=== PATIENT | female | born 1965 | race Caucasian/White ===

== ENCOUNTER 2019-02-09 17:18 | Emergency (ER) | payer OTHER ==
[~2019-02-09] VITALS: Ht 152.4 cm; Wt 63.0 kg
[2019-02-09] MEDS ORDERED: NOVOLOG MI100 UNIT/2 (17:50)
== END 2019-02-10 | disposition home or self-care (01) ==
LOC: ER 17:18
DX: D25.9 Leiomyoma of uterus, unspecified (principal); N83.292 Other ovarian cyst, left side; R10.2 Pelvic and perineal pain

== ENCOUNTER 2019-02-10 05:16 | Inpatient (IN) | payer OTHER ==
[~2019-02-10] VITALS: Ht 154.9 cm; Wt 63.0 kg
[~2019-02-10 05:16] MED LIST: NOVOLOG MI100 UNIT/2
== END 2019-02-15 16:26 | disposition home or self-care (01) | DRG 638 ==
LOC: ER 05:16 → ICU-2 15:59 → SEC-K 02-11 15:33 → MEDI 02-11 15:41
PROVIDERS: ADMIT Specialist
PROC: BW4GZZZ Ultrasonography of Pelvic Region (ICD-10-PCS; principal; 2019-02-13)
DX: E10.10 Type 1 diabetes mellitus with ketoacidosis without coma (principal); N39.0 Urinary tract infection, site not specified; K59.01 Slow transit constipation; D25.1 Intramural leiomyoma of uterus; D64.89 Other specified anemias; E03.8 Other specified hypothyroidism; E86.0 Dehydration; F32.89 Other specified depressive episodes; F41.8 Other specified anxiety disorders; Z91.14 Patient's other noncompliance with medication regimen; Z79.4 Long term (current) use of insulin

== ENCOUNTER 2019-02-16 12:43 | Inpatient (IN) | payer OTHER ==
[~2019-02-16] VITALS: Ht 154.9 cm; Wt 63.0 kg
== END 2019-02-26 10:43 | DRG 742 ==
LOC: ER 12:43 → SEC-K 02-17 17:15 → MEDI 02-17 17:15 → OB/GYN 02-23 15:12
PROVIDERS: Obstetrics & Gynecology; ADMIT Internal Medicine
PROC: BR29ZZZ Computerized Tomography (CT Scan) of Lumbar Spine (ICD-10-PCS; 2019-02-18)
PROC: 0UT20ZZ Resection of Bilateral Ovaries, Open Approach (ICD-10-PCS; 2019-02-23)
PROC: 0UT70ZZ Resection of Bilateral Fallopian Tubes, Open Approach (ICD-10-PCS; 2019-02-23)
PROC: 0UT90ZZ Resection of Uterus, Open Approach (ICD-10-PCS; principal; 2019-02-23 07:00)
DX: D25.1 Intramural leiomyoma of uterus (principal); N39.0 Urinary tract infection, site not specified; R31.0 Gross hematuria; E10.65 Type 1 diabetes mellitus with hyperglycemia; G62.89 Other specified polyneuropathies; N80.0 Endometriosis of uterus; N83.292 Other ovarian cyst, left side; D64.89 Other specified anemias; I10 Essential (primary) hypertension; E03.8 Other specified hypothyroidism; M54.5 Low back pain; F32.89 Other specified depressive episodes; F41.8 Other specified anxiety disorders; Z79.4 Long term (current) use of insulin